=== PATIENT | female | born 1945 | race Caucasian/White ===

== ENCOUNTER 2019-01-10 12:04 | Emergency (ER) | payer MEDICARE, BC ==
[2019-01-10 12:46] VITALS: BP 175/73
--- NOTE | 2019-01-10 12:47 | EDM.PDOC ---
ED HPI GENERAL MEDICAL PROBLEM - General Chief Complaint: Cardiovascular Problem Stated Complaint: HEART Time Seen by Provider: 01/10/19 12:34 Source of Information: Reports: Patient, Family, RN Notes Reviewed History Limitations: Reports: No Limitations - History of Present Illness INITIAL COMMENTS - FREE TEXT/NARRATIVE: 73-year-old female presents emergency department today complaint of palpitations , she states she woke this morning had palpitations lasted until about 11:00 however by the time she arrives to the emergency department SYMPTOMS HAVE RESOLVED THERE IS NO NAUSEA VOMITING SHORTNESS OF BREATH OR CHEST PAIN SHE DOES HAVE A HISTORY OF PALPITATIONS IN THE PAST HAS WORN EVENT MONITOR WITHOUT ANY ETIOLOGY - Related Data Allergies Allergy/AdvReac Type Severity Reaction Status Date / Time codeine Allergy Nausea and Verified 01/10/19 12:26 Vomiting furosemide [From Lasix] Allergy Cannot Verified 01/10/19 12:26 Remember Sulfa (Sulfonamide Allergy Rash Verified 01/10/19 12:26 Antibiotics) Home Meds: Home Meds Ketoconazole 1 applic TOP BID PRN 02/05/15 [History] Levothyroxine Sodium 75 mcg PO DAILY 02/05/15 [History] Losartan [Cozaar] 100 mg PO DAILY 02/05/15 [History] Metoprolol Succinate [Toprol XL 100mg] 100 mg PO DAILY 02/05/15 [History] Acetaminophen/Aspirin/Caffeine [Excedrin Extra Strength] 1.5 tab PO DAILY PRN [History] Calcium Carbonate/Vitamin D3 [Calcium 600 + Vit D Tablet] 1 each PO DAILY [History] Diazepam [Valium] 5 mg PO ASDIRECTED 10/20/15 [History] Fluticasone Propionate [Flonase] 2 spray NS DAILY 10/20/15 [History] amLODIPine [Norvasc] 5 mg PO DAILY 10/20/15 [History] atorvaSTATin [Lipitor] 20 mg PO DAILY 10/20/15 [History] Past Medical History HEENT History: Reports: Glaucoma Cardiovascular History: Reports: CAD, High Cholesterol, Hypertension, [place] Gastrointestinal History: Reports: Colon Polyp Genitourinary History: Reports: UTI, Recurrent Other Genitourinary History: lichen sclerosis [employer] History: Reports: Dysfunctional Uterine Bleeding, Fibroids, Musculoskeletal History: Reports: Arthritis Neurological History: Reports: Migraines Endocrine/Metabolic History: Reports: Hypothyroidism - Infectious Disease History Infectious Disease History: Reports: Chicken Pox, Measles - Past Surgical History Female Surgical History: Reports: Hysterectomy Social & Family History - Family History Family Medical History: Noncontributory - Tobacco Use Smoking Status *Q: Never Smoker - Recreational Drug Use Recreational Drug Use: No ED ROS GENERAL - Review of Systems Review Of Systems: See Below Constitutional: Reports: No Symptoms Respiratory: Reports: No Symptoms Cardiovascular: Reports: Palpitations GI/Abdominal: Reports: No Symptoms ED EXAM, GENERAL - Physical Exam Exam: See Below Exam Limited By: No Limitations General Appearance: Alert, WD/WN, No Apparent Distress Respiratory/Chest: No Respiratory Distress, Lungs Clear, Normal Breath Sounds, No Accessory Muscle Use, Chest Non-Tender Cardiovascular: Normal Peripheral Pulses, Regular Rate, Rhythm, No Murmur GI/Abdominal: Soft, Non-Tender Course - Vital Signs Last Recorded V/S: Last Vital Signs Temp 96.6 F 01/10/19 12:26 Pulse 70 01/10/19 12:26 Resp 10 L 01/10/19 12:26 BP 175/73 H 01/10/19 12:26 Pulse Ox 98 01/10/19 12:26 - Orders/Labs/Meds Orders: Active Orders 24 hr Category Date Time Status Cardiac Monitoring [RC] .As Directed Care 01/10/19 12:42 Active EKG Documentation Completion [RC] ASDIRECTED Care 01/10/19 12:43 Active EKG 12 Lead [EK] Stat Ther 01/10/19 12:43 Ordered Labs: Laboratory Tests 01/10/19 01/10/19 Range/Units 12:53 12:53 WBC 5.2 (4.5-11.0) K/uL RBC 4.30 (3.30-5.50) M/uL Hgb 12.9 (12.0-15.0) g/dL Hct 40.5 (36.0-48.0) % MCV 94 (80-98) fL MCH 30 (27-31) pg MCHC 32 (32-36) % Plt Count 213 (150-400) K/uL Neut % (Auto) 54 (36-66) % Lymph % (Auto) 29 (24-44) % [place] % (Auto) 11 H (2-6) % Eos % (Auto) 5 H (2-4) % Baso % (Auto) 1 (0-1) % Sodium 139 L (140-148) mmol/L Potassium 4.0 (3.6-5.2) mmol/L Chloride 105 (100-108) mmol/L Carbon Dioxide 26 (21-32) mmol/L Anion Gap 12.0 (5.0-14.0) mmol/L BUN 16 (7-18) mg/dL Creatinine 0.8 (0.6-1.0) mg/dL Est Cr Clr Drug Dosing 53.35 mL/min Estimated GFR (MDRD) > 60 (>60) Glucose 92 (74-106) mg/dL Calcium 8.9 (8.5-10.1) mg/dL Total Bilirubin 0.5 (0.2-1.0) mg/dL AST 25 (15-37) U/L ALT 26 (12-78) U/L Alkaline Phosphatase 52 (46-116) U/L Troponin I < 0.017 (0.000-0.056) ng/mL Total Protein 7.0 (6.4-8.2) g/dL Albumin 3.6 (3.4-5.0) g/dL Globulin 3.4 (2.3-3.5) g/dL Albumin/Globulin Ratio 1.1 L (1.2-2.2) Departure - Departure Time of Disposition: 13:27 Disposition: Home, Self-Care 01 Condition: Fair Clinical Impression: Palpitations Referrals: Shamar Hardy MD [Primary Care Provider] - Forms: ED Department Discharge Additional Instructions: Continue her regular medications, please follow-up with your primary care for discussion of possible 30 day monitor to try and catch these palpitations and given diagnosis - My Orders Last 24 Hours: My Active Orders 01/10/19 12:42 Cardiac Monitoring [RC] .As Directed 01/10/19 12:43 EKG Documentation Completion [RC] ASDIRECTED EKG 12 Lead [EK] Stat - Assessment/Plan Last 24 Hours: My Active Orders 01/10/19 12:42 Cardiac Monitoring [RC] .As Directed 01/10/19 12:43 EKG Documentation Completion [RC] ASDIRECTED EKG 12 Lead [EK] Stat Plan: Assessment Acuity = acute Site and laterality = palpitations Etiology = unclear etiology Manifestations = none Location of injury = Home Lab values = CBC, CMP, troponin within normal limits EKG demonstrates normal sinus rhythm no signs ischemia Plan Recommend follow-up with primary care recommend 30 day monitor for further evaluation and try and catch the palpitations when she is symptomatic This note was dictated using [employer] voice recognition software please call with any questions on syntax or grammar.
== END 2019-01-10 13:38 | disposition home or self-care (01) ==
LOC: JP.ED 12:04
DX: R00.2 Palpitations (principal); I10 Essential (primary) hypertension; E78.00 Pure hypercholesterolemia, unspecified; E03.9 Hypothyroidism, unspecified; Z79.899 Other long term (current) drug therapy; Z88.5 Allergy status to narcotic agent; Z88.2 Allergy status to sulfonamides; Z88.8 Allergy status to other drugs, medicaments and biological substances
CPT/HCPCS: 36415; 80053; 84484; 85025; 93005; 99284-25

== ENCOUNTER 2019-12-23 16:29 | Emergency (ER) | payer MEDICARE, BC ==
[2019-12-23 16:45] VITALS: BP 158/83; PULSE 81
--- NOTE | 2019-12-23 17:15 | EDM.PDOC ---
ED HPI GENERAL MEDICAL PROBLEM - General Chief Complaint: Cardiovascular Problem Stated Complaint: muscle spasm in chest Time Seen by Provider: 12/23/19 17:01 Source of Information: Reports: Patient, Old Records, RN Notes Reviewed History Limitations: Reports: No Limitations - History of Present Illness INITIAL COMMENTS - FREE TEXT/NARRATIVE: 74-year-old female presents emergency department with a complaint of chest pain she states that chest pain for the last 2 weeks it is very intermittent up to 1- 3 times per day lasts under a minute each event will start in her left breast area and then spread across the chest down to both arms and up into the neck on both sides. No nausea no vomiting no diaphoresis no dyspnea - Related Data Allergies Allergy/AdvReac Type Severity Reaction Status Date / Time codeine Allergy Nausea and Verified 12/23/19 16:46 Vomiting furosemide [From Lasix] Allergy Cannot Verified 12/23/19 16:46 Remember Sulfa (Sulfonamide Allergy Rash Verified 12/23/19 16:46 Antibiotics) Home Meds: Home Meds Ketoconazole 1 applic TOP BID PRN 02/05/15 [History] Levothyroxine Sodium 75 mcg PO DAILY 02/05/15 [History] Losartan [Cozaar] 100 mg PO DAILY 02/05/15 [History] Metoprolol Succinate [Toprol XL 100mg] 100 mg PO DAILY 02/05/15 [History] Acetaminophen/Aspirin/Caffeine [Excedrin Extra Strength] 2 tab PO DAILY PRN 10/20/15 [History] Diazepam [Valium] 5 mg PO ASDIRECTED 10/20/15 [History] Fluticasone Propionate [Flonase] 2 spray NS DAILY 10/20/15 [History] amLODIPine [Norvasc] 5 mg PO DAILY 10/20/15 [History] atorvaSTATin [Lipitor] 20 mg PO BEDTIME 10/20/15 [History] Past Medical History HEENT History: Reports: Glaucoma Cardiovascular History: Reports: CAD, High Cholesterol, Hypertension, [place] Gastrointestinal History: Reports: Colon Polyp Genitourinary History: Reports: UTI, Recurrent Other Genitourinary History: lichen sclerosis [employer]ER[employer] PER [employer] History: Reports: Dysfunctional Uterine Bleeding, Fibroids, Musculoskeletal History: Reports: Arthritis Neurological History: Reports: Migraines Endocrine/Metabolic History: Reports: Hypothyroidism - Infectious Disease History Infectious Disease History: Reports: Chicken Pox, Measles - Past Surgical History Female Surgical History: Reports: Hysterectomy Social & Family History - Family History Family Medical History: Noncontributory - Tobacco Use Smoking Status *Q: Never Smoker ED ROS GENERAL - Review of Systems Review Of Systems: See Below Constitutional: Reports: No Symptoms HEENT: Reports: No Symptoms Respiratory: Reports: No Symptoms Cardiovascular: Reports: Chest Pain GI/Abdominal: Reports: No Symptoms ED EXAM, GENERAL - Physical Exam Exam: See Below Exam Limited By: No Limitations General Appearance: Alert, WD/WN, No Apparent Distress Neck: Normal Inspection, Supple, Non-Tender, Full Range of Motion Respiratory/Chest: No Respiratory Distress, Lungs Clear, Normal Breath Sounds, No Accessory Muscle Use, Chest Non-Tender Cardiovascular: Regular Rate, Rhythm, No Murmur GI/Abdominal: Soft, Non-Tender Extremities: No Pedal Edema Course - Vital Signs Last Recorded V/S: Last Vital Signs Temp 97.4 F 12/23/19 16:46 Pulse 81 12/23/19 16:46 Resp 13 12/23/19 16:46 BP 158/83 H 12/23/19 16:46 Pulse Ox 95 12/23/19 16:46 - Orders/Labs/Meds Orders: Active Orders 24 hr Category Date Time Status Cardiac Monitoring [RC] .As Directed Care 12/23/19 17:13 Active EKG Documentation Completion [RC] ASDIRECTED Care 12/23/19 17:13 Active Chest 2V [CR] Stat Exams 12/23/19 17:13 Taken EKG 12 Lead [EK] Stat Ther 12/23/19 17:13 Ordered Labs: Laboratory Tests 12/23/19 12/23/19 Range/Units 17:23 17:23 WBC 6.4 (4.5-11.0) K/uL RBC 4.37 (3.30-5.50) M/uL Hgb 13.3 (12.0-15.0) g/dL Hct 41.5 (36.0-48.0) % MCV 95 (80-98) fL MCH 30 (27-31) pg MCHC 32 (32-36) % Plt Count 230 (150-400) K/uL Neut % (Auto) 65 (36-66) % Lymph % (Auto) 22 L (24-44) % [place] % (Auto) 10 H (2-6) % Eos % (Auto) 2 (2-4) % Baso % (Auto) 1 (0-1) % Sodium 141 (140-148) mmol/L Potassium 3.7 (3.6-5.2) mmol/L Chloride 106 (100-108) mmol/L Carbon Dioxide 25 (21-32) mmol/L Anion Gap 10.3 (5.0-14.0) mmol/L BUN 17 (7-18) mg/dL Creatinine 1.1 H (0.6-1.0) mg/dL Est Cr Clr Drug Dosing 38.24 mL/min Estimated GFR (MDRD) 49 L (>60) Glucose 123 H (74-106) mg/dL Calcium 9.0 (8.5-10.1) mg/dL Total Bilirubin 0.6 (0.2-1.0) mg/dL AST 27 (15-37) U/L ALT 22 (12-78) U/L Alkaline Phosphatase 55 (46-116) U/L Troponin I < 0.017 (0.000-0.056) ng/mL Total Protein 7.2 (6.4-8.2) g/dL Albumin 3.9 (3.4-5.0) g/dL Globulin 3.3 (2.3-3.5) g/dL Albumin/Globulin Ratio 1.2 (1.2-2.2) Departure - Departure Time of Disposition: 17:53 Disposition: Home, Self-Care 01 Condition: Fair Clinical Impression: Atypical chest pain Referrals: Shamar Hardy MD [Primary Care Provider] - Forms: ED Department Discharge Additional Instructions: Continue with your current medications, please followup with your primary care provider in 3-5 days if not better, please call return to the emergency department with worsening of symptoms. Sepsis Event Note (ED) - Evaluation Sepsis Screening Result: No Definite Risk - Focused Exam Vital Signs: Vital Signs Temp Pulse Resp BP Pulse Ox 12/23/19 16:46 97.4 F 81 13 158/83 H 95 12/23/19 16:41 97.4 F 81 13 158/83 H 95 - My Orders Last 24 Hours: My Active Orders 12/23/19 17:13 Cardiac Monitoring [RC] .As Directed EKG Documentation Completion [RC] ASDIRECTED Chest 2V [CR] Stat EKG 12 Lead [EK] Stat - Assessment/Plan Last 24 Hours: My Active Orders 12/23/19 17:13 Cardiac Monitoring [RC] .As Directed EKG Documentation Completion [RC] ASDIRECTED Chest 2V [CR] Stat EKG 12 Lead [EK] Stat Plan: Assessment Acuity = acute Site and laterality = atypical chest pain Etiology = suspicious for muscle skeletal Manifestations = none Location of injury = Home Lab values = CBC unremarkable creatinine elevated 1.1 consistent with chronic renal failure stage T3a, EKG demonstrates sinus rhythm chest x-ray I did review films myself I cannot appreciate any acute process, the official read from radiology is pending Plan Follow-up with primary care 3 to 5 days if not better This note was dictated using [employer] voice recognition software please call with any questions on syntax or grammar.
--- NOTE | 2019-12-24 08:52 | CR ---
CHEST: 2 view CLINICAL HISTORY:Chest pain COMPARISON:None FINDINGS: The heart size, pulmonary vascularity and hilar structures are normal. No infiltrate effusion or pneumothorax is seen. IMPRESSION: No acute cardiopulmonary process.
== END 2019-12-23 18:15 | disposition home or self-care (01) ==
LOC: JP.ED 16:29
DX: R07.89 Other chest pain (principal); I25.10 Atherosclerotic heart disease of native coronary artery without angina pectoris; I25.2 Old myocardial infarction; I10 Essential (primary) hypertension; E78.00 Pure hypercholesterolemia, unspecified; E03.9 Hypothyroidism, unspecified; Z90.710 Acquired absence of both cervix and uterus; Z88.8 Allergy status to other drugs, medicaments and biological substances; Z88.5 Allergy status to narcotic agent; Z88.2 Allergy status to sulfonamides; Z79.899 Other long term (current) drug therapy
CPT/HCPCS: 36415; 71046; 71046-26; 80053; 84484; 85025; 93005; 99285-25

== ENCOUNTER 2022-11-27 06:23 | Day surgery (SDC) | payer MEDICARE, BC ==
[~2022-11-27 06:23] MED LIST: Propofol 200 MG/20 ML SDV ONE; fentaNYL 50 MCG/ML SDV ONE
[2022-11-27] MEDS ORDERED: Lactated Ringers 1,000 ML IV SCH (08:00)
[2022-11-27 09:34] VITALS: BP 182/69; PULSE 58
== END 2022-11-27 09:45 | disposition home or self-care (01) ==
LOC: JP.SDS 06:23
PROVIDERS: ATTEND Family Medicine
DX: Z12.11 Encounter for screening for malignant neoplasm of colon (principal); D12.4 Benign neoplasm of descending colon; K57.30 Diverticulosis of large intestine without perforation or abscess without bleeding; I25.10 Atherosclerotic heart disease of native coronary artery without angina pectoris; I10 Essential (primary) hypertension; E03.9 Hypothyroidism, unspecified; E78.00 Pure hypercholesterolemia, unspecified; Z90.710 Acquired absence of both cervix and uterus; Z88.2 Allergy status to sulfonamides; Z88.5 Allergy status to narcotic agent; Z91.040 Latex allergy status
CPT/HCPCS: 45380; 88305; J2704; J3010; J7120

== ENCOUNTER 2024-03-01 17:52 | Emergency (ER) | payer MEDICARE, BC ==
[2024-03-01 19:39] LABS: BASOPHILS PERCENT AUTO 0.3 % (0.1-1.3); EOSINOPHILS ABSOLUTE AUTO 0.08 K/uL (0.00-0.40); EOSINOPHILS PERCENT AUTO 2.1 % (0.0-5.4); HEMATOCRIT 41.1 % (34.3-46.0); HEMOGLOBIN 13.8 g/dL (11.2-15.5); LYMPHOCYTES ABSOLUTE AUTO 1.04 K/uL (0.8-3.3); LYMPHOCYTES PERCENT AUTO 27.9 % (11.4-47.7); MEAN CORPUSCULAR HEMOGLOBIN 31.2 pg (31.6-35.5); MEAN CORPUSCULAR HGB CONC 33.6 g/dL (31.6-35.5); MEAN CORPUSCULAR VOLUME 92.8 fL (81.4-99.0); MONOCYTES ABSOLUTE AUTO 0.52 K/uL (0.20-0.90); MONOCYTES PERCENT AUTO 13.9 % (3.3-12.6); NEUTROPHILS ABSOLUTE AUTO 2.08 K/uL (1.0-7.6); NEUTROPHILS PERCENT AUTO 55.8 % (40.0-78.1); PLATELET COUNT,PLT 154 K/uL (130-375); RED BLOOD CELL COUNT 4.43 M/uL (3.77-5.24); WHITE BLOOD CELL COUNT,WBC 3.7 K/uL (3.2-11.0)
[2024-03-01 19:40] LABS: BASOPHILS ABSOLUTE AUTO 0.01 K/uL (0.00-0.10)
[2024-03-01] MEDS: Lactated Ringers 1,000 ML IV ONE (19:52)
[2024-03-01] MEDS: Sodium Chloride 0.9% 10 ML Syringe FLUSH PRN (19:53)
[2024-03-01 20:00] LABS: APPEARANCE,URINE SLIGHTLY CLOUDY (CLEAR); BILIRUBIN,URINE NEGATIVE (NEGATIVE); COLOR,URINE YELLOW (YELLOW); GLUCOSE,URINE NEGATIVE (NEGATIVE); KETONES,URINE NEGATIVE (NEGATIVE); LEUKOCYTE ESTERASE,URINE SMALL (NEGATIVE); NITRITE,URINE NEGATIVE (NEGATIVE); OCCULT BLOOD,URINE NEGATIVE (NEGATIVE); PH,URINE 6.5 (5.0-8.0); PROTEIN,URINE TRACE mg/dL (NEGATIVE); UROBILINOGEN,URINE 0.2 EU/dL (0.2-1.0)
[2024-03-01 20:01] LABS: A/G RATIO 1.1 (1.2-2.2); ALANINE AMINOTRANSFERASE,ALT 38 U/L (12-78); ALBUMIN 3.6 g/dL (3.4-5.0); ALKALINE PHOSPHATASE 49 U/L (46-116); ANION GAP 11.8 mmol/L (5.0-14.0); ASPARTATE AMNIOTRANSFERASE,AST 44 U/L (15-37); BILIRUBIN TOTAL 0.6 mg/dL (0.2-1.0); BLOOD UREA NITROGEN,BUN 22 mg/dL (7-18); CALCIUM 9.2 mg/dL (8.5-10.1); CARBON DIOXIDE,CO2 27 mmol/L (21-32); CHLORIDE,CL 102 mmol/L (100-108); CREATININE 1.1 mg/dL (0.6-1.0); EST CRCL DRUG DOSING (CG) 35.99 mL/min; ESTIMATED GFR 52 mL/min (>60); GLUCOSE RANDOM 116 mg/dL (74-106); POTASSIUM,K 3.8 mmol/L (3.6-5.2); PROTEIN TOTAL,TP 6.9 g/dL (6.4-8.2); SODIUM,NA 137 mmol/L (140-148)
[2024-03-01 20:06] LABS: AMORPHOUS SEDIMENT,URINE NOT SEEN; BACTERIA,URINE FEW; EPITHELIAL CELLS,URINE FEW; MUCUS,URINE RARE; RBC,URINE 0-5 (0-5)
[2024-03-01] MEDS: Ketorolac 30 MG/ML SDV IVPUSH ONE (20:44)
[2024-03-01 20:52] VITALS: BP 147/59; PULSE 75
== END 2024-03-01 21:40 | disposition home or self-care (01) ==
LOC: JP.ED 17:52
DX: A05.9 Bacterial foodborne intoxication, unspecified (principal); I10 Essential (primary) hypertension; I25.10 Atherosclerotic heart disease of native coronary artery without angina pectoris; I25.2 Old myocardial infarction; E03.9 Hypothyroidism, unspecified; Z90.710 Acquired absence of both cervix and uterus; Z79.899 Other long term (current) drug therapy; Z79.82 Long term (current) use of aspirin; Z79.51 Long term (current) use of inhaled steroids; Z79.890 Hormone replacement therapy; Z88.5 Allergy status to narcotic agent; Z88.2 Allergy status to sulfonamides; Z88.8 Allergy status to other drugs, medicaments and biological substances
CPT/HCPCS: 36415; 80053; 81001; 83605; 84484; 85025; 87086; 96361; 96374; 99284; J1885; J3490; J7120